=== PATIENT | male | born 1955 | race Caucasian/White ===

== ENCOUNTER 2024-04-02 21:47 | Emergency (ER) | payer MEDICARE ==
[2024-04-02 22:12] VITALS: RESP 18; TEMP 97.6
[2024-04-02] MEDS ORDERED: Sodium Chloride 0.9% 1000 ML 1,000 ML ONE (22:31)
[2024-04-02] MEDS ORDERED: TORAdol 30 mg Injection ONE (22:31)
[2024-04-02 22:32] LABS: Absolute Neutrophil Ct (ANC) 3.36 x10^3/uL (1.78-5.38); BASOPHIL % 0.3 % (0.2-1.2); Basophil (Absolute #) 0.02 x10^3/uL (0.01-0.08); Eosinophil % 0.7 % (0.8-7.0); Eosinophil (Absolute #) 0.04 x10^3/uL (0.04-0.54); Hematocrit 36.8 % (40.1-51.0); Hemoglobin 12.5 g/dL (13.7-17.5); IMMATURE GRAN # 0.01 x10^3u/L (0.001-0.031); IMMATURE GRAN % 0.2 % (0.001-0.429); Lymphocyte (Absolute #) 2.09 x10^3/uL (1.32-3.57); Lymphocytes % 34.4 % (21.8-53.1); Mean Cell Volume 92.7 fL (79.0-92.2); Mean Corpuscular Hemoglobin 31.5 pg (25.7-32.2); Mean Platelet Volume 11.1 fL (9.4-12.4); Monocyte (Absolute #) 0.56 x10^3/uL (0.30-0.82); Monocytes % 9.2 % (5.3-12.2); Neutrophil % 55.2 % (34.0-67.9); Platelet Count 189 x10^3/uL (163-337); Red Blood Count 3.97 x10^6/uL (4.63-6.08); Red Cell Distribution Width 12.4 % (11.6-14.4); White Blood Count 6.1 x10^3/uL (4.23-9.07)
[2024-04-02] MEDS: Sodium Chloride 0.9% 1000 ML 1,000 ML IV STA (22:32)
[2024-04-02] MEDS: TORAdol 30 mg Injection IV ONE (22:32)
[2024-04-02 22:46] LABS: ALBUMIN 4.3 g/dL (3.5-5.0); ANION GAP 11.6 MEQ/L (5-15); BILIRUBIN,TOTAL 0.4 mg/dL (0.2-1.3); Calcium 9.6 mg/dL (8.4-10.2); Creatinine 1 1.32 mg/dL (0.66-1.25); EST GLOMERULAR FILTRATION RATE 59.5 ML/MIN; Potassium 4.3 mmol/L (3.5-5.1); Total Protein 6.7 g/dL (6.3-8.2)
--- NOTE | 2024-04-02 23:59 | XRAY ---
CLINICAL HISTORY: abd pain COMPARISON: None TECHNIQUE: Contiguous axial images were obtained from the level of the diaphragm to the pubic symphysis without intravenous or oral contrast. Coronal and sagittal reconstructions were likewise performed and indicated to increase the sensitivity for detecting clinically relevant pathology. CT scan was performed according to ALARA (as low as reasonable achievable). FINDINGS: The visualized lung bases are clear. Evaluation of the abdominal and pelvic visceral organs is limited without intravenous contrast. The unenhanced liver, spleen, and adrenal glands are grossly unremarkable. The gallbladder is present. Pancreas show diffuse atrophic changes with fatty parenchymal infiltration. No evidence of calcifications/adjacent fat stranding. The kidneys are normal in size and attenuation. There is no hydronephrosis or perinephric stranding. 3mm calculus noted in lower pole calyx of right kidney. 4mm calculus noted in lower pole calyx of left kidney. The ureters are normal in caliber. No adenopathy or fluid collections are seen. No evidence of focal or diffuse bowel wall thickening or evidence of bowel obstruction is seen. The appendix is visualized in the right lower quadrant and appears within normal limits. The aorta shows athrosclerotic wall calcifications. Focal ectatic aorta noted in distal aorta proximal to bifurcation(Maximum diameter-27mm). The urinary bladder is normal in contour. Pelvic viscera are grossly unremarkable. No aggressive appearing osseous lesions are identified. IMPRESSION: 1. Pancreas show diffuse atrophic changes with fatty parenchymal infiltration. 2. Bilateral nonobstructive small renal calculi. 3. Atherosclerotic changes in aorta with focal ectasia of infrarenal aorta. Advised CT Aortogram for further evaluation. Electronically Signed by: Alden Waterman MD. (04/02/2024 23:54:42 EDT)
[2024-04-03] MEDS ORDERED: Cyclobenzaprine 10 MG ONE (00:25)
[2024-04-03] MEDS: Cyclobenzaprine 10 MG PO ONE (00:25)
[2024-04-03 00:42] LABS: Appearance Clear (Clear); Bacteria None Seen /HPF (None Seen); Bilirubin Negative (Negative); Blood Negative (Negative); Epithelial Cells None Seen /HPF (None Seen); Glucose, Urine Negative (Negative); Ketones Negative (Negative); Leukocyte Esterase Negative (Negative); Nitrite Negative (Negative); Ph 5.5 (4.6-8.0); Protein,Urine Dip Negative (Negative); RBC 0-2 /HPF (0-5); Specific Gravity 1.015 (1.005-1.030); Urobilinogen 0.2 mg/dL (0.2); WBC 0-2 /HPF (0-5)
[2024-04-03 00:46] LABS: ADD URINE CULTURE? NO (NO)
--- NOTE | 2024-04-03 00:46 | ERPHSYRPT ---
- History of Present Illness Historian: patient Exam Limitations: no limitations Patient Subjective Stated Complaint: pt states he thinks he has a kidney stone Triage Nursing Assessment: pt ambulated into the er; pt is axo x 4; c/o left flank pain; pt states 4/10 pain to left flank region; pt states pain is worse with movement; abd round, soft, non tender; active bowel sounds in all quads; skin PDW; no respiratory distress; hypertensive Physician History: The patient, with a history of right-sided kidney stones treated with lithotripsy approximately four to five years ago, now presents with left-sided back pain. The pain is described as severe, rating an 8 out of 10, and is exacerbated by movement. The patient denies any radiation of the pain to the groin, dysuria, hematuria, or pain during urination. He also denies any associated symptoms such as fever, chills, nausea, vomiting, chest pain, or difficulty breathing. The patient notes a recent decrease in urinary stream strength. Timing/Duration: today Activities at Onset: rest Quality: sharpness, stabbing Abdominal Pain Onset Location: flank (left) Pain Radiation: back Severity of Pain-Max: severe Severity of Pain-Current: severe Modifying Factors: Improves With: rest. Worsens With: movement Associated Symptoms: back, No chest pain, No diaphoresis, No diarrhea, No fever/chills, No fatigue, No loss of appetite, No nausea, No vomiting Previous symptoms: same symptoms as today Allergies/Adverse Reactions: acetaminophen [From Vicodin] Allergy (Verified 04/02/24 21:56) Itching codeine Allergy (Verified 04/02/24 21:56) Itching hydrocodone [From Vicodin] Allergy (Verified 04/02/24 21:56) Itching Home Medications: Atorvastatin Calcium 20 mg PO DAILY 04/02/24 [History] Glipizide 5 mg [Glucotrol 5 MG] 5 mg PO DAILY 04/02/24 [History] Losartan Potassium 100 mg PO DAILY 04/02/24 [History] Metformin HCl 500 mg [Glucophage 500 MG] 1,000 mg PO BIDWM 04/02/24 [History] Semaglutide [Ozempic] 1 mg SQ WEEKLY 04/02/24 [History] Hx Tetanus, Diphtheria Vaccination/Date Given: No Hx Influenza Vaccination/Date Given: No Hx Pneumococcal Vaccination/Date Given: No Travel Risk - International Travel Have you traveled outside of the country in past 3 weeks: No - Emerging Infectious Disease Are you exhibiting symptoms associated with any current EIDs: No - Review of Systems All Other Systems: Reviewed and Negative - Past Medical History Pertinent Past Medical History: Yes Cardiac History: High Cholesterol, Hypertension Endocrine Medical History: Diabetes Type II History: Other Other Medical History: kidney stones - Past Surgical History Past Surgical History: Yes Gastrointestinal: Hernia Repair, Other Other Surgical History: kidney stone removal - Social History Smoking Status: Former smoker Exposure to second hand smoke: No Drug Use: none Patient Lives Alone: No - Social Determinants of Health Will the patient participate in the screening: Yes Do you worry about a steady place to live?: No Do you have any problems with any of the following?: No known problems In the past 12 months,have you had to go without utilities?: No Transportation Issues: No Has anyone in your support network made you feel unsafe?: No Have you or anyone in your house had to go without enough: No - Nursing Vital Signs Nursing Vital Signs: Initial Vital Signs Pulse Rate 66 04/02/24 22:00 Blood Pressure 160/82 04/02/24 22:00 O2 Sat by Pulse Oximetry 99 04/02/24 22:00 Pain Scale Pain Intensity 4 - Physical Exam General Appearance: no apparent distress, obese Gastrointestinal/Abdomen Exam: soft, normal bowel sounds, No tenderness, No distention, No mass, No guarding, No rebound Back Exam: normal inspection, CVA tenderness (left), point tenderness (left cva, paraspinals), No vertebral tenderness, No rash Neurologic Exam: alert, oriented x 3, cooperative Skin Exam: normal color, warm, dry SpO2 Interpretation: normal SpO2: 100 O2 Delivery: Room Air - Course Nursing assessment & vital signs reviewed: Yes - CT Exams Abdomen/Pelvis CT Interpretation: Tele-radiologist Report, Other (4mm stone in lower pole kidney) Ordered Tests: Active Orders 24 hr Category Date Time Status IV Insertion STAT Care 04/02/24 22:23 Completed ABDOMEN AND PELVIS W/0 CONTRAS [CT] Stat Exams 04/02/24 22:23 Completed CBC W DIFF Stat Lab 04/02/24 22:29 Completed CMP Stat Lab 04/02/24 22:29 Completed LIPASE Stat Lab 04/02/24 22:29 Completed Lactic Acid Stat Lab 04/02/24 22:37 Completed UA W/RFX UR CULTURE Stat Lab 04/03/24 00:21 Completed Medication Summary Discontinued Medications Generic Name Dose Route Start Last Admin Trade Name Abdirashid PRN Reason Stop Dose Admin Cyclobenzaprine HCl 10 mg 04/03/24 00:21 04/03/24 00:25 Cyclobenzaprine Hcl 10 Mg Tablet PO 04/03/24 00:22 10 mg STAT ONE Administration Cyclobenzaprine HCl Confirm 04/03/24 00:25 Cyclobenzaprine Hcl 10 Mg Tablet Administered 04/03/24 00:26 Dose 10 mg .ROUTE .STK-MED ONE Sodium Chloride 1,000 mls @ 999 mls/hr 04/02/24 22:23 04/03/24 00:26 Sodium Chloride 0.9% 1000 Ml IV 04/02/24 23:23 Infused .Q1H1M STA Infusion Sodium Chloride Confirm 04/02/24 22:31 Sodium Chloride 0.9% 1000 Ml Administered 04/02/24 22:32 Dose 1,000 mls @ ud .ROUTE .STK-MED ONE Ketorolac Tromethamine 30 mg 04/02/24 22:23 04/02/24 22:32 Ketorolac Tromethamine 30 Mg/Ml Inj IV 04/02/24 22:24 30 mg STAT ONE Administration Ketorolac Tromethamine Confirm 04/02/24 22:31 Ketorolac Tromethamine 30 Mg/Ml Inj Administered 04/02/24 22:32 Dose 30 mg .ROUTE .STK-MED ONE Lab/Rad Data: Laboratory Result Diagrams 04/02/24 22:29 04/02/24 22:29 Laboratory Results 04/03/24 04/02/24 04/02/24 Range/Units 00:21 22:37 22:29 WBC (4.23-9.07) x10^3/uL RBC (4.63-6.08) x10^6/uL Hgb (13.7-17.5) g/dL Hct (40.1-51.0) % MCV (79.0-92.2) fL MCH (25.7-32.2) pg MCHC (32.3-36.5) g/dL RDW (11.6-14.4) % Plt Count (163-337) x10^3/uL MPV (9.4-12.4) fL Gran % (34.0-67.9) % Immature Gran % (Auto) (0.001-0.429) % Nucleat RBC Rel Count (0.00-0.2) % Eos # (Auto) (0.04-0.54) x10^3/uL Immature Gran # (Auto) (0.001-0.031) x10^3u/L Absolute Lymphs (auto) (1.32-3.57) x10^3/uL Absolute Monos (auto) (0.30-0.82) x10^3/uL Absolute Nucleated RBC (0.00-0.012) x10^3u/L Lymphocytes % (21.8-53.1) % Monocytes % (5.3-12.2) % Eosinophils % (0.8-7.0) % Basophils % (0.2-1.2) % Absolute Granulocytes (1.78-5.38) x10^3/uL Basophils # (0.01-0.08) x10^3/uL Sodium 139 (135-145) mmol/L Potassium 4.3 (3.5-5.1) mmol/L Chloride 105 (98-107) mmol/L Carbon Dioxide 27 (22-30) mmol/L Anion Gap 11.6 (5-15) MEQ/L BUN 21 H (9-20) mg/dL Creatinine 1.32 H (0.66-1.25) mg/dL Estimated GFR 59.5 ML/MIN Glucose 99 (74-106) mg/dL Lactic Acid 1.3 (0.4-2.0) Calcium 9.6 (8.4-10.2) mg/dL Total Bilirubin 0.40 (0.2-1.3) mg/dL AST 25 (17-59) U/L ALT 21 (0-50) U/L Alkaline Phosphatase 56 (38-126) U/L Serum Total Protein 6.7 (6.3-8.2) g/dL Albumin 4.3 (3.5-5.0) g/dL Lipase 24 (23-300) U/L Urine Color Yellow (Yellow) Urine Appearance Clear (Clear) Urine pH 5.5 (4.6-8.0) Ur Specific [place] 1.015 (1.005-1.030) Urine Protein Negative (Negative) Urine Glucose (UA) Negative (Negative) mg/dL Urine Ketones Negative (Negative) Urine Blood Negative (Negative) Urine Nitrite Negative (Negative) Urine Bilirubin Negative (Negative) Urine Urobilinogen 0.2 (0.2) mg/dL Ur Leukocyte Esterase Negative (Negative) U Hyaline Cast (Auto) 3-5 A (0-2) /LPF Urine Microscopic RBC 0-2 (0-5) /HPF Urine Microscopic WBC 0-2 (0-5) /HPF Ur Epithelial Cells None Seen (None Seen) /HPF Urine Bacteria None Seen (None Seen) /HPF Urine Culture Reflexed NO (NO) 04/02/24 Range/Units 22:29 WBC 6.1 (4.23-9.07) x10^3/uL RBC 3.97 L (4.63-6.08) x10^6/uL Hgb 12.5 L (13.7-17.5) g/dL Hct 36.8 L (40.1-51.0) % MCV 92.7 H (79.0-92.2) fL MCH 31.5 (25.7-32.2) pg MCHC 34.0 (32.3-36.5) g/dL RDW 12.4 (11.6-14.4) % Plt Count 189 (163-337) x10^3/uL MPV 11.1 (9.4-12.4) fL Gran % 55.2 (34.0-67.9) % Immature Gran % (Auto) 0.2 (0.001-0.429) % Nucleat RBC Rel Count 0.0 (0.00-0.2) % Eos # (Auto) 0.04 (0.04-0.54) x10^3/uL Immature Gran # (Auto) 0.01 (0.001-0.031) x10^3u/L Absolute Lymphs (auto) 2.09 (1.32-3.57) x10^3/uL Absolute Monos (auto) 0.56 (0.30-0.82) x10^3/uL Absolute Nucleated RBC 0.00 (0.00-0.012) x10^3u/L Lymphocytes % 34.4 (21.8-53.1) % Monocytes % 9.2 (5.3-12.2) % Eosinophils % 0.7 L (0.8-7.0) % Basophils % 0.3 (0.2-1.2) % Absolute Granulocytes 3.36 (1.78-5.38) x10^3/uL Basophils # 0.02 (0.01-0.08) x10^3/uL Sodium (135-145) mmol/L Potassium (3.5-5.1) mmol/L Chloride (98-107) mmol/L Carbon Dioxide (22-30) mmol/L Anion Gap (5-15) MEQ/L BUN (9-20) mg/dL Creatinine (0.66-1.25) mg/dL Estimated GFR ML/MIN Glucose (74-106) mg/dL Lactic Acid (0.4-2.0) Calcium (8.4-10.2) mg/dL Total Bilirubin (0.2-1.3) mg/dL AST (17-59) U/L ALT (0-50) U/L Alkaline Phosphatase (38-126) U/L Serum Total Protein (6.3-8.2) g/dL Albumin (3.5-5.0) g/dL Lipase (23-300) U/L Urine Color (Yellow) Urine Appearance (Clear) Urine pH (4.6-8.0) Ur Specific [place] (1.005-1.030) Urine Protein (Negative) Urine Glucose (UA) (Negative) mg/dL Urine Ketones (Negative) Urine Blood (Negative) Urine Nitrite (Negative) Urine Bilirubin (Negative) Urine Urobilinogen (0.2) mg/dL Ur Leukocyte Esterase (Negative) U Hyaline Cast (Auto) (0-2) /LPF Urine Microscopic RBC (0-5) /HPF Urine Microscopic WBC (0-5) /HPF Ur Epithelial Cells (None Seen) /HPF Urine Bacteria (None Seen) /HPF Urine Culture Reflexed (NO) - Progress Progress: improved Progress Note: Lab evaluation and CT scan unremarkable for kidney stone as cause of pain. Patient likely suffering from a low back/oblique strain from recent wood cutting activities. Given Flexeril and Toradol with good improvement of sxs. Advised patient to f/u w/ PCP for script for PT. Counseled pt/family regarding: lab results, diagnosis, need for follow-up, rad results Medical Desision Making - Diagnostic Testing Diagnostic test were ordered, analyzed, and reviewed by me: Yes Radiological Interpretation: Interpreted by me, Reviewed by me, Teleradiologist Report - Risk of complications The pt has a mod risk of morbidity or mortality based on: Need for prescription drug management - Departure Departure Disposition: Home Clinical Impression: Left-sided back pain, REESE (acute kidney injury), Strain of muscle, fascia and tendon of lower back, initial encounter Condition: Stable Critical Care Time: No Referrals: KORINA OLMSTEAD NP [Primary Care Provider] - Follow up/PCP as directed Instructions: Back Muscle Strain Prescriptions: Cyclobenzaprine HCl 10 mg PO TID PRN 5 Days #15 tablet PRN Reason: Muscle Spasms Ketorolac Trometh 10 mg Tab [TORAdol 10 MG TABLET] 10 mg PO TID PRN 5 Days #15 tablet PRN Reason: Pain
[2024-04-03 01:34] VITALS: BP 154/88; PULSE 69
[2024-04-03 23:23] VITALS: O2SAT 100
== END 2024-04-03 01:39 | disposition home or self-care (01) ==
LOC: ED 21:47
DX: S39.012A Strain of muscle, fascia and tendon of lower back, initial encounter (principal); M54.9 Dorsalgia, unspecified; N17.9 Acute kidney failure, unspecified; E78.5 Hyperlipidemia, unspecified; I10 Essential (primary) hypertension; E11.9 Type 2 diabetes mellitus without complications; Z79.84 Long term (current) use of oral hypoglycemic drugs; Z79.85 Long-term (current) use of injectable non-insulin antidiabetic drugs; Z79.899 Other long term (current) drug therapy
CPT/HCPCS: 36000; 36415; 74176; 80053; 81001; 83605; 83690; 85025; 96360; 96374; 99284; J1885; A9270-GY